=== PATIENT | female | born 1990 | race Caucasian/White ===

== ENCOUNTER 2020-04-29 12:19 | Inpatient (IN) | payer MEDICAID ==
[~2020-04-29] VITALS: Ht 175.3 cm; Wt 75.7 kg
[2020-04-29] MEDS ORDERED: LORazepam 2 MG/ML VIAL IM ONE (14:15)
[2020-04-29] MEDS ORDERED: DiphenhydrAMINE HCL 50 MG/ML VIAL IM ONE (14:15)
[2020-04-29] MEDS ORDERED: HALOPERIDOL LACTATE 5 MG/ML VIAL IM ONE (14:15)
[2020-04-29 15:18] LABS: COVID AG,FIA SOURCE NASOPHARYNGEAL
[2020-04-29 16:04] LABS: APPEARANCE,URINE CLEAR (CLEAR); BILIRUBIN,URINE NEGATIVE (NEGATIVE); GLUCOSE, URINE (UA) NEGATIVE (NEGATIVE); KETONES,URINE NEGATIVE (NEGATIVE); LEUKOCYTE ESTERASE ,URINE TRACE (NEGATIVE); NITRATE,URINE NEGATIVE (NEGATIVE); OCCULT BLOOD,URINE TRACE (NEGATIVE); PROTEIN,URINE NEGATIVE (NEGATIVE); UROBILINOGEN,URINE 0.2 mg/dL (<=1.0)
[2020-04-29 16:11] LABS: BACTERIA,URINE None Seen /HPF (None Seen); RBC,URINE 0-2 /HPF (0-2); SQUAMOUS EPITHELIAL CELL,UR Moderate /LPF (None Seen); WBC,URINE 0-2 /HPF (0-5); YEAST,URINE None Seen /HPF (None Seen)
[2020-04-29 16:13] LABS: AMPHET/METH SCREEN,URINE POSITIVE (NEGATIVE); BARBITURATE SCREEN, URINE NEGATIVE (NEGATIVE); BENZODIAZEPINES SCREEN,URINE NEGATIVE (NEGATIVE); CANNABINOID SCREEN,URINE NEGATIVE (NEGATIVE); COCAINE SCREEN,URINE NEGATIVE (NEGATIVE); METHADONE SCREEN, URINE NEGATIVE (NEGATIVE); OPIATE SCREEN,URINE NEGATIVE (NEGATIVE)
[2020-04-29 16:14] LABS: PHENCYCLIDINE SCREEN,URINE NEGATIVE (NEGATIVE)
[2020-04-29] MEDS ORDERED: ZOLPIDEM TARTRATE 10 MG TABLET PO PRN (19:00)
[2020-04-29 20:30] LABS: BASOPHILS % (AUTO) 0.8 % (0.0-2.0); HEMATOCRIT 38.6 % (36-46); HEMOGLOBIN 12.8 g/dL (12.0-16.0); LYMPHOCYTES # (AUTO) 2.1 K/uL (1.0-4.8); LYMPHOCYTES % (AUTO) 29.2 % (22.0-44.0); MEAN CORPUSCULAR HEMOGLOBIN 28.6 pg (26.0-34.0); MEAN CORPUSCULAR HGB CONC 33.1 G/dL (31.0-37.0); MEAN CORPUSCULAR VOLUME 87 fL (80-100); MONOCYTES # (AUTO) 0.9 K/uL (0.1-1.0); MONOCYTES % (AUTO) 12.5 % (2.0-9.0); NEUTROPHILS % (AUTO) 55.5 % (40.0-70.0); PLATELET COUNT (AUTO) 322 K/uL (150-450); RED BLOOD CELL COUNT(AUTO) 4.46 MIL/uL (4.00-5.20); RED CELL DISTRIBUTION WIDTH 13.8 % (11.5-14.5)
[2020-04-29 20:42] LABS: ANION GAP 7 mmol/L (8-16); CALCIUM, TOTAL 8.7 mg/dL (8.8-10.5); CARBON DIOXIDE 27 mmol/L (22-29); CHLORIDE 103 mmol/L (98-107); CREATININE 0.82 mg/dL (0.60-1.30); GLOMERULAR FILTR. RATE CALC > 60 mL/min (>60); GLUCOSE,RANDOM 83 mg/dL (70-110); POTASSIUM 3.9 mmol/L (3.5-5.1); SODIUM SERUM 137 mmol/L (136-145); UREA NITROGEN, BLOOD 12 mg/dL (7-18)
[2020-04-29 21:17] LABS: ALANINE AMINOTRANSFERASE 84 U/L (12-78); ALBUMIN 3.5 g/dL (3.4-5.0); ALKALINE PHOSPHATASE 60 U/L (46-116); ASPARTATE AMINOTRANSFERASE 46 U/L (15-37); BILIRUBIN,TOTAL 0.5 mg/dL (0.1-1.0); HCG,QUANTITATIVE < 1 mIU/mL (0-6); TOTAL PROTEIN, SERUM 7.3 g/dL (6.4-8.2)
[2020-04-29 22:12] VITALS: BP 106/67
[2020-04-29] MEDS ORDERED: INFLUENZA VIRUS VACCINE QVS 2020-21 (6MO+)/PF 60 MCG/0.5 ML SYRINGE IM ONE (23:00)
[2020-04-30 07:28] LABS: CHOL/HDL RATIO 2.5 (3.9-5.7)
[2020-04-30] MEDS ORDERED: ONDANSETRON HCL 4 MG TABLET PO PRN (07:30)
[2020-04-30] MEDS ORDERED: ALBUTEROL SULFATE HFA 90 MCG/PUFF 8 GM INHALER IH PRN (07:30)
[2020-04-30] MEDS ORDERED: ACETAMINOPHEN 325 MG TABLET PO PRN (07:30)
[2020-04-30] MEDS ORDERED: LOPERAMIDE HCL 2 MG CAPSULE PO PRN (07:30)
[2020-04-30] MEDS ORDERED: DOCUSATE SODIUM 100 MG CAPSULE PO PRN (07:30)
[2020-04-30] MEDS ORDERED: NICOTINE 14 MG/24 HOUR PATCH TD PRN (07:30)
[2020-04-30] MEDS ORDERED: MAGNESIUM HYDROXIDE SUSPENSION 30 ML UDCUP PO PRN (07:30)
[2020-04-30] MEDS ORDERED: PETROLATUM,WHITE 28 GM JELLY TP PRN (07:30)
[2020-04-30] MEDS ORDERED: MAG HYDROX/AL HYDROX/SIMETH ES 30 ML SUSPENSION UDCUP PO PRN (07:30)
[2020-04-30] MEDS ORDERED: GuaiFENesin/D-METHORPHAN [SUGAR-FREE] 200-20MG/10 ML SYRUP UDCUP PO PRN (07:30)
[2020-04-30] MEDS ORDERED: IBUPROFEN 400 MG TABLET PO PRN (07:30)
[2020-04-30] MEDS ORDERED: CloNIDine HCL 0.1 MG TABLET PO PRN (07:30)
[2020-04-30 16:29] VITALS: BP 121/72
[2020-05-01 08:20] VITALS: BP 136/82
[2020-05-01] MEDS: HALOPERIDOL 5 MG TABLET PO PRN (15:37)
[2020-05-01] MEDS: LORazepam 2 MG TABLET PO PRN (15:37)
[2020-05-01] MEDS: OLANZapine 5 MG TABLET PO SCH (21:07)
[2020-05-02 08:32] VITALS: BP 144/85
[2020-05-02] MEDS: OLANZapine 5 MG TABLET PO SCH ×2 (10:14→16:12)
[2020-05-02 16:00] VITALS: BP 120/69
[2020-05-03 08:00] VITALS: BP 116/79
[2020-05-03] MEDS: OLANZapine 5 MG TABLET PO SCH (08:27)
[2020-05-03] MEDS: LORazepam 2 MG TABLET PO PRN (08:27)
[2020-05-03] MEDS: SERTRALINE HCL 50 MG TABLET PO SCH (12:50)
[2020-05-03] MEDS: OLANZapine 10 MG TABLET PO SCH (16:19)
[2020-05-03 16:59] VITALS: BP 118/70
[2020-05-04 08:08] VITALS: BP 106/70
[2020-05-04] MEDS: OLANZapine 10 MG TABLET PO SCH ×2 (08:24→15:58)
[2020-05-04] MEDS: LORazepam 2 MG TABLET PO PRN (08:24)
[2020-05-04] MEDS: SERTRALINE HCL 50 MG TABLET PO SCH (08:24)
[2020-05-04] MEDS: HALOPERIDOL 5 MG TABLET PO PRN (08:24)
[2020-05-04 16:23] VITALS: BP 122/67
[2020-05-05 08:46] VITALS: BP 136/90
[2020-05-05] MEDS: SERTRALINE HCL 50 MG TABLET PO SCH (10:06)
[2020-05-05] MEDS: OLANZapine 10 MG TABLET PO SCH ×2 (10:06→15:58)
[2020-05-05] MEDS: HALOPERIDOL 5 MG TABLET PO PRN (10:07)
[2020-05-05] MEDS: LORazepam 2 MG TABLET PO PRN (11:28)
[2020-05-05 12:20] LABS: COVID AG,FIA SOURCE NASOPHARYNGEAL
[2020-05-05 16:32] VITALS: BP 125/62
[2020-05-06 08:00] VITALS: BP 146/77
[2020-05-06] MEDS: SERTRALINE HCL 50 MG TABLET PO SCH (09:27)
[2020-05-06] MEDS: OLANZapine 10 MG TABLET PO SCH ×2 (09:27→16:03)
[2020-05-06 12:00] VITALS: BP 136/79
[2020-05-06 16:22] VITALS: BP 130/71
[2020-05-07] MEDS: LORazepam 2 MG TABLET PO PRN (07:41)
[2020-05-07] MEDS: HALOPERIDOL 5 MG TABLET PO PRN (07:41)
[2020-05-07] MEDS: SERTRALINE HCL 50 MG TABLET PO SCH (07:41)
[2020-05-07] MEDS: OLANZapine 10 MG TABLET PO SCH ×2 (07:41→16:13)
[2020-05-07 08:00] VITALS: BP 123/85
[2020-05-07 16:20] VITALS: BP 126/72
[2020-05-08] MEDS: OLANZapine 10 MG TABLET PO SCH ×2 (07:47→16:12)
[2020-05-08] MEDS: SERTRALINE HCL 50 MG TABLET PO SCH (07:47)
[2020-05-08 08:00] VITALS: BP 124/72
[2020-05-08] MEDS: LORazepam 2 MG TABLET PO PRN (08:01)
[2020-05-08] MEDS: HALOPERIDOL 5 MG TABLET PO PRN (08:01)
[2020-05-09] MEDS: OLANZapine 10 MG TABLET PO SCH ×2 (07:45→16:11)
[2020-05-09] MEDS: LORazepam 2 MG TABLET PO PRN (07:46)
[2020-05-09] MEDS: SERTRALINE HCL 50 MG TABLET PO SCH (07:46)
[2020-05-09] MEDS: HALOPERIDOL 5 MG TABLET PO PRN (07:46)
[2020-05-09 09:41] VITALS: BP 126/71
[2020-05-09 16:31] VITALS: BP 135/86
[2020-05-10] MEDS: OLANZapine 10 MG TABLET PO SCH ×2 (08:02→16:17)
[2020-05-10] MEDS: LORazepam 2 MG TABLET PO PRN ×2 (08:02→16:17)
[2020-05-10] MEDS: SERTRALINE HCL 50 MG TABLET PO SCH (08:02)
[2020-05-10] MEDS: HALOPERIDOL 5 MG TABLET PO PRN ×2 (08:02→16:20)
[2020-05-10 08:34] VITALS: BP 120/80
[2020-05-10 16:00] VITALS: BP 124/68
[2020-05-11] MEDS: LORazepam 2 MG TABLET PO PRN ×3 (08:25→21:08)
[2020-05-11] MEDS: SERTRALINE HCL 50 MG TABLET PO SCH (08:25)
[2020-05-11] MEDS: OLANZapine 10 MG TABLET PO SCH ×2 (08:25→16:15)
[2020-05-11 16:45] VITALS: BP 128/80
[2020-05-12 08:15] VITALS: BP 117/68
[2020-05-12] MEDS: OLANZapine 10 MG TABLET PO SCH ×2 (08:41→16:12)
[2020-05-12] MEDS: LORazepam 2 MG TABLET PO PRN ×2 (08:41→16:12)
[2020-05-12] MEDS: SERTRALINE HCL 50 MG TABLET PO SCH (08:42)
[2020-05-12] MEDS: DIVALPROEX SODIUM 500 MG DR TABLET PO SCH ×2 (10:31→16:12)
[2020-05-12 13:10] LABS: COVID AG,FIA SOURCE NASOPHARYNGEAL
[2020-05-12 16:29] VITALS: BP 110/61
[2020-05-12] MEDS: HALOPERIDOL 5 MG TABLET PO PRN (16:53)
[2020-05-13 08:00] VITALS: BP 115/81
[2020-05-13] MEDS: HALOPERIDOL 5 MG TABLET PO PRN (08:27)
[2020-05-13] MEDS: DIVALPROEX SODIUM 500 MG DR TABLET PO SCH ×2 (08:27→15:59)
[2020-05-13] MEDS: SERTRALINE HCL 50 MG TABLET PO SCH (08:27)
[2020-05-13] MEDS: LORazepam 2 MG TABLET PO PRN ×2 (08:27→15:59)
[2020-05-13] MEDS: OLANZapine 10 MG TABLET PO SCH ×2 (08:27→15:59)
[2020-05-13 16:30] VITALS: BP 118/80
[2020-05-14 08:00] VITALS: BP 123/87
[2020-05-14] MEDS: DIVALPROEX SODIUM 500 MG DR TABLET PO SCH ×2 (08:55→16:41)
[2020-05-14] MEDS: SERTRALINE HCL 50 MG TABLET PO SCH (08:55)
[2020-05-14] MEDS: OLANZapine 10 MG TABLET PO SCH ×2 (08:55→16:41)
[2020-05-14] MEDS: LORazepam 2 MG TABLET PO PRN (08:55)
[2020-05-14 16:11] VITALS: BP 120/77
[2020-05-15 08:00] VITALS: BP 136/76
[2020-05-15] MEDS: DIVALPROEX SODIUM 500 MG DR TABLET PO SCH (08:00)
[2020-05-15] MEDS: OLANZapine 10 MG TABLET PO SCH ×2 (08:00→16:09)
[2020-05-15] MEDS: SERTRALINE HCL 50 MG TABLET PO SCH (08:00)
[2020-05-15] MEDS: HALOPERIDOL 5 MG TABLET PO PRN ×2 (08:01→20:32)
[2020-05-15] MEDS: LORazepam 2 MG TABLET PO PRN ×2 (08:01→16:09)
[2020-05-15 16:47] VITALS: BP 121/80
[2020-05-15] MEDS: DIVALPROEX SODIUM 250 MG DR TABLET PO SCH (20:33)
[2020-05-16 08:24] VITALS: BP 119/73
[2020-05-16] MEDS: HALOPERIDOL 5 MG TABLET PO PRN ×2 (08:41→20:30)
[2020-05-16] MEDS: OLANZapine 10 MG TABLET PO SCH ×2 (08:41→15:59)
[2020-05-16] MEDS: LORazepam 2 MG TABLET PO PRN ×2 (08:41→15:59)
[2020-05-16] MEDS: DIVALPROEX SODIUM 250 MG DR TABLET PO SCH ×2 (08:41→20:30)
[2020-05-16] MEDS: SERTRALINE HCL 50 MG TABLET PO SCH (08:41)
[2020-05-16 16:37] VITALS: BP 112/74
[2020-05-17] MEDS: DIVALPROEX SODIUM 250 MG DR TABLET PO SCH ×2 (08:22→20:51)
[2020-05-17] MEDS: OLANZapine 10 MG TABLET PO SCH ×2 (08:22→16:44)
[2020-05-17] MEDS: LORazepam 2 MG TABLET PO PRN ×2 (08:22→16:47)
[2020-05-17] MEDS: SERTRALINE HCL 50 MG TABLET PO SCH (08:22)
[2020-05-17 08:36] VITALS: BP 130/76
[2020-05-17 16:05] VITALS: BP_SYST 112; BP_SYST 143; BP_DIAS 79; BP_DIAS 82
[2020-05-17] MEDS: HALOPERIDOL 5 MG TABLET PO PRN (16:46)
[2020-05-18] MEDS: OLANZapine 10 MG TABLET PO SCH ×2 (08:24→16:01)
[2020-05-18] MEDS: HALOPERIDOL 5 MG TABLET PO PRN ×3 (08:24→20:22)
[2020-05-18] MEDS: SERTRALINE HCL 50 MG TABLET PO SCH (08:24)
[2020-05-18] MEDS: DIVALPROEX SODIUM 250 MG DR TABLET PO SCH ×2 (08:25→20:23)
[2020-05-18 16:27] VITALS: BP 122/68
[2020-05-19 08:00] VITALS: BP 126/76
[2020-05-19] MEDS: OLANZapine 10 MG TABLET PO SCH ×2 (09:20→16:08)
[2020-05-19] MEDS: SERTRALINE HCL 50 MG TABLET PO SCH (09:20)
[2020-05-19] MEDS: DIVALPROEX SODIUM 250 MG DR TABLET PO SCH ×2 (09:21→20:15)
[2020-05-19] MEDS ORDERED: ZOLPIDEM TARTRATE 10 MG TABLET PO PRN (09:30)
[2020-05-19] MEDS: HALOPERIDOL 5 MG TABLET PO PRN ×2 (15:53→20:15)
[2020-05-19 16:16] VITALS: BP 115/69
[2020-05-19] MEDS: LORazepam 2 MG TABLET PO PRN (17:44)
[2020-05-19 18:45] LABS: COVID AG,FIA SOURCE NASAL SWAB
[2020-05-20] MEDS: SERTRALINE HCL 50 MG TABLET PO SCH (08:10)
[2020-05-20] MEDS: OLANZapine 10 MG TABLET PO SCH ×2 (08:11→16:31)
[2020-05-20] MEDS: HALOPERIDOL 5 MG TABLET PO PRN ×2 (08:11→20:13)
[2020-05-20] MEDS: DIVALPROEX SODIUM 250 MG DR TABLET PO SCH ×2 (08:11→20:13)
[2020-05-20] MEDS: LORazepam 2 MG TABLET PO PRN ×2 (08:11→15:36)
[2020-05-20 16:10] VITALS: BP 123/69
[2020-05-21 08:00] VITALS: BP 116/77
[2020-05-21] MEDS: OLANZapine 10 MG TABLET PO SCH ×2 (08:04→16:26)
[2020-05-21] MEDS: LORazepam 2 MG TABLET PO PRN (08:04)
[2020-05-21] MEDS: SERTRALINE HCL 50 MG TABLET PO SCH (08:04)
[2020-05-21] MEDS: DIVALPROEX SODIUM 250 MG DR TABLET PO SCH ×2 (08:04→20:23)
[2020-05-21] MEDS: HALOPERIDOL 5 MG TABLET PO PRN (08:04)
[2020-05-21 16:40] VITALS: BP 106/87
[2020-05-22 08:00] VITALS: BP 110/58
[2020-05-22] MEDS: DIVALPROEX SODIUM 250 MG DR TABLET PO SCH ×2 (08:13→20:48)
[2020-05-22] MEDS: LORazepam 2 MG TABLET PO PRN (08:13)
[2020-05-22] MEDS: OLANZapine 10 MG TABLET PO SCH ×2 (08:13→16:05)
[2020-05-22] MEDS: SERTRALINE HCL 50 MG TABLET PO SCH (08:13)
[2020-05-22] MEDS: BACITRACIN 28 GM OINTMENT TP SCH ×2 (08:14→16:05)
[2020-05-22 16:54] VITALS: BP 136/62
[2020-05-23 08:00] VITALS: BP 121/74
[2020-05-23] MEDS: LORazepam 2 MG TABLET PO PRN (08:00)
[2020-05-23] MEDS: DIVALPROEX SODIUM 250 MG DR TABLET PO SCH ×2 (08:09→20:36)
[2020-05-23] MEDS: SERTRALINE HCL 50 MG TABLET PO SCH (08:09)
[2020-05-23] MEDS: OLANZapine 10 MG TABLET PO SCH ×2 (08:09→16:07)
[2020-05-23] MEDS: BACITRACIN 28 GM OINTMENT TP SCH ×2 (08:09→16:07)
[2020-05-23 17:23] VITALS: BP 126/77
[2020-05-24 06:30] VITALS: BP 144/82
[2020-05-24 06:45] VITALS: BP 123/77
[2020-05-24 07:15] VITALS: BP 144/84
[2020-05-24] MEDS: LORazepam 2 MG TABLET PO PRN (07:49)
[2020-05-24] MEDS: SERTRALINE HCL 50 MG TABLET PO SCH (07:49)
[2020-05-24] MEDS: OLANZapine 10 MG TABLET PO SCH ×2 (07:49→17:00)
[2020-05-24] MEDS: DIVALPROEX SODIUM 250 MG DR TABLET PO SCH ×2 (07:49→20:14)
[2020-05-24] MEDS: BACITRACIN 28 GM OINTMENT TP SCH ×2 (07:50→17:00)
[2020-05-24 08:12] VITALS: BP 123/77
[2020-05-24 16:30] VITALS: BP 121/74
[2020-05-25] MEDS: HALOPERIDOL 5 MG TABLET PO PRN ×2 (07:58→16:28)
[2020-05-25] MEDS: LORazepam 2 MG TABLET PO PRN ×2 (07:58→16:28)
[2020-05-25] MEDS: OLANZapine 10 MG TABLET PO SCH ×2 (07:58→16:28)
[2020-05-25] MEDS: DIVALPROEX SODIUM 250 MG DR TABLET PO SCH ×2 (07:59→20:16)
[2020-05-25] MEDS: SERTRALINE HCL 50 MG TABLET PO SCH (07:59)
[2020-05-25 08:00] VITALS: BP 132/68
[2020-05-25] MEDS: BACITRACIN 28 GM OINTMENT TP SCH ×2 (08:03→16:28)
[2020-05-25 16:12] VITALS: BP 129/94
[2020-05-26] MEDS: SERTRALINE HCL 50 MG TABLET PO SCH (07:49)
[2020-05-26] MEDS: BACITRACIN 28 GM OINTMENT TP SCH (07:49)
[2020-05-26] MEDS: OLANZapine 10 MG TABLET PO SCH (07:49)
[2020-05-26] MEDS: DIVALPROEX SODIUM 250 MG DR TABLET PO SCH (07:49)
[2020-05-26] MEDS: LORazepam 2 MG TABLET PO PRN (07:49)
[2020-05-26] MEDS: HALOPERIDOL 5 MG TABLET PO PRN (07:49)
[2020-05-26 08:15] VITALS: BP 127/74
[2020-05-26] MEDS ORDERED: SERT-158 PO (08:28)
[2020-05-26] MEDS ORDERED: OLAN10TA3 PO (08:28)
[2020-05-26] MEDS ORDERED: DIVA-111 PO (08:28)
== END 2020-05-26 10:05 | disposition home or self-care (01) | DRG 750 ==
LOC: EMS 12:22 → 3EC 18:53
PROVIDERS: ADMIT Psychiatry & Neurology Child & Adolescent Psychiatry; ATTEND Psychiatry & Neurology Child & Adolescent Psychiatry
DX: F20.9 Schizophrenia, unspecified (principal); F15.10 Other stimulant abuse, uncomplicated; G93.40 Encephalopathy, unspecified; F41.9 Anxiety disorder, unspecified; R45.87 Impulsiveness; Z59.0 Homelessness; Z20.822 Contact with and (suspected) exposure to COVID-19; Z23 Encounter for immunization
CPT/HCPCS: 70486; 87070; 87205; 87426; 90686; 99291; G0480; J1200; J1630; J2060; J3535